=== PATIENT | male | born 1960 | race Caucasian/White ===

== ENCOUNTER 2024-04-20 10:21 | Emergency (ER) | payer BC, MEDICARE ==
[2024-04-20 11:29] LABS: CORONAVIRUS COVID-19 NAA POSITIVE (NEGATIVE); INFLUENZA A NAA NEGATIVE (NEGATIVE); RESPIRATORY SYNCYTIAL VIR NAA NEGATIVE (NEGATIVE)
[2024-04-20 11:36] LABS: BASOPHILS PERCENT AUTO 0.6 % (0.0-1.0); EOSINOPHILS ABSOLUTE AUTO 0.1 K/mm3 (0.0-0.4); EOSINOPHILS PERCENT AUTO 1.4 % (0.0-6.0); HEMATOCRIT 50.3 % (42.0-52.0); HEMOGLOBIN 16.5 gm/dl (14.0-18.0); IMMATURE GRAN ABSOLUTE AUTO 0.04 K/mm3 (0.00-0.05); IMMATURE GRAN PERCENT AUTO 0.6 % (0.0-0.4); LYMPHOCYTES ABSOLUTE AUTO 1.1 K/mm3 (1.0-4.8); LYMPHOCYTES PERCENT AUTO 16.7 % (24.0-44.0); MEAN CORPUSCULAR HEMOGLOBIN 28.4 pg (28.0-32.0); MEAN CORPUSCULAR HGB CONC 32.8 g/dl (32.0-36.0); MEAN CORPUSCULAR VOLUME 86.4 fl (83.0-99.0); MEAN PLATELET VOLUME 9.2 fl (9.4-12.4); MONOCYTES ABSOLUTE AUTO 0.9 K/mm3 (0.0-0.8); NEUTROPHILS ABSOLUTE AUTO 4.5 K/mm3 (1.8-7.7); NEUTROPHILS PERCENT AUTO 67.7 % (41.0-71.0); PLATELET COUNT,PLT 187 K/mm3 (150-400); RED BLOOD CELL COUNT 5.82 M/mm3 (4.52-5.90); WHITE BLOOD CELL COUNT,WBC 6.63 K/mm3 (3.9-11.3)
[2024-04-20 11:59] LABS: INR 1.04; LACTIC ACID 1.4 mmol/L (0.4-2.0)
[2024-04-20 12:00] LABS: PTT,PARTIAL THROMBOPLSTIN TIME 38.8 SECONDS (21.7-31.4)
[2024-04-20] MEDS: methylPREDNISolone Sodium Succinate 125 MG/2 ML SDV IVPUSH ONE (12:00)
[2024-04-20 12:05] LABS: A/G RATIO 0.8 (1-2); ALBUMIN 3.4 g/dl (3.4-5.0); ANION GAP 13.8 (5-15); BILIRUBIN TOTAL 0.6 mg/dL (0.2-1.0); CALCIUM 9.1 mg/dL (8.5-10.1); CREATININE 1.1 mg/dL (0.7-1.3); EST CRCL DRUG DOSING (CG) 73.48 mL/min; MAGNESIUM 2.1 mg/dL (1.8-2.4); POTASSIUM,K 3.8 mEq/L (3.5-5.1); PROTEIN TOTAL,TP 7.6 g/dl (6.4-8.2)
[2024-04-20] MEDS: Albuterol/Ipratropium 3.0-0.5 MG/3 ML Neb Soln NEB ONE (12:05)
[2024-04-20 12:18] LABS: D-DIMER QUANTITATIVE 0.67 mg/L (0.19-0.50)
[2024-04-20] MEDS: Sodium Chloride 0.9% 100 ML IV SCH (12:53)
[2024-04-20] MEDS: Iopamidol 755 Mg/ML 100 ML Bottle IVPUSH ONE (12:53)
[2024-04-20] MEDS: Sodium Chloride 0.9% 10 ML Syringe FLUSH PRN (12:59)
[2024-04-20] MEDS: cefTRIAXone 1 GM in Sodium Chloride 0.9% 100 ML IV ONE (13:15)
== END 2024-04-20 16:20 | disposition home or self-care (01) ==
LOC: JD.ED 10:21
DX: U07.1 COVID-19 (principal); J12.82 Pneumonia due to coronavirus disease 2019; J44.1 Chronic obstructive pulmonary disease with (acute) exacerbation; I10 Essential (primary) hypertension; I25.10 Atherosclerotic heart disease of native coronary artery without angina pectoris; E78.00 Pure hypercholesterolemia, unspecified; Z95.0 Presence of cardiac pacemaker; Z95.5 Presence of coronary angioplasty implant and graft; Z79.82 Long term (current) use of aspirin; Z79.899 Other long term (current) drug therapy; Z88.0 Allergy status to penicillin; Z88.1 Allergy status to other antibiotic agents; Z88.8 Allergy status to other drugs, medicaments and biological substances
CPT/HCPCS: 0241U; 36415; 71045; 71045-26; 71275; 71275-26; 80053; 83605; 83735; 84484; 85025; 85379; 85610; 85730; 87040; 94640; 96365; 96375; 99284; 99285-25; J0696; J2919; J3490; J7620-GY; Q9967

== ENCOUNTER 2024-04-25 06:11 | Emergency (ER) | payer BC, MEDICARE ==
[2024-04-25] MEDS: Azithromycin 250 MG Tab PO ONE (07:45)
== END 2024-04-25 07:45 | disposition home or self-care (01) ==
LOC: JD.ED 06:11
DX: J44.9 Chronic obstructive pulmonary disease, unspecified (principal); J43.9 Emphysema, unspecified; U07.1 COVID-19; I10 Essential (primary) hypertension; E78.00 Pure hypercholesterolemia, unspecified; Z95.0 Presence of cardiac pacemaker; Z95.5 Presence of coronary angioplasty implant and graft; Z79.82 Long term (current) use of aspirin; Z79.899 Other long term (current) drug therapy; Z88.8 Allergy status to other drugs, medicaments and biological substances; Z88.1 Allergy status to other antibiotic agents; Z88.0 Allergy status to penicillin
CPT/HCPCS: 71046; 99284; A9270

== ENCOUNTER 2024-04-30 09:15 | Inpatient (IN) | payer BC, MEDICARE ==
[2024-04-30] MEDS ORDERED: Sodium Chloride 0.9% 10 ML Syringe FLUSH PRN (10:20)
[2024-04-30 10:42] LABS: BASOPHILS PERCENT AUTO 0.1 % (0.0-1.0); EOSINOPHILS ABSOLUTE AUTO 0.1 K/mm3 (0.0-0.4); EOSINOPHILS PERCENT AUTO 0.6 % (0.0-6.0); HEMATOCRIT 44.8 % (42.0-52.0); IMMATURE GRAN ABSOLUTE AUTO 0.06 K/mm3 (0.00-0.05); IMMATURE GRAN PERCENT AUTO 0.6 % (0.0-0.4); LYMPHOCYTES ABSOLUTE AUTO 1.1 K/mm3 (1.0-4.8); LYMPHOCYTES PERCENT AUTO 11.4 % (24.0-44.0); MEAN CORPUSCULAR VOLUME 84.8 fl (83.0-99.0); MEAN PLATELET VOLUME 8.8 fl (9.4-12.4); MONOCYTES ABSOLUTE AUTO 0.8 K/mm3 (0.0-0.8); MONOCYTES PERCENT AUTO 8.1 % (0.0-8.0); NEUTROPHILS ABSOLUTE AUTO 7.9 K/mm3 (1.8-7.7); NEUTROPHILS PERCENT AUTO 79.2 % (41.0-71.0); PLATELET COUNT,PLT 224 K/mm3 (150-400); RED BLOOD CELL COUNT 5.28 M/mm3 (4.52-5.90); WHITE BLOOD CELL COUNT,WBC 9.94 K/mm3 (3.9-11.3)
[2024-04-30 10:44] LABS: HEMOGLOBIN 14.8 gm/dl (14.0-18.0)
[2024-04-30 11:06] LABS: A/G RATIO 0.5 (1-2); ALBUMIN 2.5 g/dl (3.4-5.0); BILIRUBIN TOTAL 0.9 mg/dL (0.2-1.0); C-REACTIVE PROTEIN 16.3 mg/dL (<0.30); CALCIUM 8.6 mg/dL (8.5-10.1); CREATININE 0.8 mg/dL (0.7-1.3); EST CRCL DRUG DOSING (CG) 101.04 mL/min; MAGNESIUM 1.9 mg/dL (1.8-2.4); PROTEIN TOTAL,TP 7.2 g/dl (6.4-8.2)
[2024-04-30 11:25] LABS: APPEARANCE,URINE CLEAR (Clear); BILIRUBIN,URINE 1+ (Negative); COLOR,URINE AMBER (Yellow); GLUCOSE,URINE NEGATIVE (Negative); KETONES,URINE TRACE (Negative); LEUKOCYTE ESTERASE,URINE NEGATIVE (Negative); NITRITE,URINE NEGATIVE (Negative); OCCULT BLOOD,URINE NEGATIVE (Negative); PH,URINE 6.5 (5.0-8.0); PROTEIN,URINE 2+ (Negative)
[2024-04-30] MEDS: methylPREDNISolone Sodium Succinate 125 MG/2 ML SDV IVPUSH ONE (11:50)
[2024-04-30] MEDS: Sodium Chloride 0.9% 1,000 ML IV ONE (11:50)
[2024-04-30] MEDS: Levofloxacin/Dextrose 5%-Water 500 MG in Premix Bag 1 BAG IV ONE (11:50)
[2024-04-30 11:52] LABS: BACTERIA,URINE FEW /hpf (FEW); EPITHELIAL CELLS,URINE 0-5 /hpf (0-5); MUCUS,URINE MANY /hpf (FEW); RBC,URINE 0-5 /hpf (0-5); WBC,URINE 0-5 /hpf (0-5)
[2024-04-30] MEDS ORDERED: Ondansetron 4 MG/2 ML SDV IV PRN (13:44)
[2024-04-30] MEDS ORDERED: Acetaminophen 325 MG Tab PO PRN (13:44)
[2024-04-30] MEDS ORDERED: Cyclobenzaprine 10 MG Tab PO PRN (13:45)
[2024-04-30] MEDS ORDERED: Lactulose Soln 10 GM/15 ML 30 ML UD Cup PO PRN (14:00)
[2024-04-30] MEDS: Metoprolol Succinate 25 MG Tab.ER PO SCH (15:46)
[2024-04-30] MEDS: Aspirin 81 MG Tab.EC PO SCH (15:48)
[2024-04-30] MEDS: atorvaSTATin 40 MG Tab PO SCH (15:48)
[2024-04-30] MEDS: Acetaminophen/HYDROcodone 325-5 MG Tab PO PRN (15:52)
[2024-04-30] MEDS: Albuterol/Ipratropium 3.0-0.5 MG/3 ML Neb Soln NEB SCH ×2 (19:25→20:46)
[2024-04-30] MEDS: Pantoprazole 40 MG Tab.CR PO SCH (21:23)
[2024-05-01] MEDS: predniSONE 20 MG Tab PO SCH (07:57)
[2024-05-01] MEDS ORDERED: Metoprolol Succinate 25 MG Tab.ER PO SCH (08:00)
[2024-05-01] MEDS ORDERED: Aspirin 81 MG Tab.EC PO SCH (08:00)
[2024-05-01] MEDS ORDERED: atorvaSTATin 40 MG Tab PO SCH (08:00)
[2024-05-01 10:24] LABS: HEMATOCRIT 42.1 % (42.0-52.0); HEMOGLOBIN 13.7 gm/dl (14.0-18.0); MEAN CORPUSCULAR HEMOGLOBIN 28.1 pg (28.0-32.0); MEAN CORPUSCULAR HGB CONC 32.5 g/dl (32.0-36.0); MEAN CORPUSCULAR VOLUME 86.3 fl (83.0-99.0); MEAN PLATELET VOLUME 9.5 fl (9.4-12.4); PLATELET COUNT,PLT 258 K/mm3 (150-400); RED BLOOD CELL COUNT 4.88 M/mm3 (4.52-5.90); WHITE BLOOD CELL COUNT,WBC 9.05 K/mm3 (3.9-11.3)
[2024-05-01 10:57] LABS: POTASSIUM,K 4.4 mEq/L (3.5-5.1)
[2024-05-01 10:58] LABS: A/G RATIO 0.5 (1-2); ALBUMIN 2.3 g/dl (3.4-5.0); ANION GAP 14.4 (5-15); BILIRUBIN TOTAL 0.4 mg/dL (0.2-1.0); BUN/CREATININE RATIO 18.8 (14-18); CREATININE 0.8 mg/dL (0.7-1.3); EST CRCL DRUG DOSING (CG) 101.04 mL/min; PROTEIN TOTAL,TP 6.7 g/dl (6.4-8.2)
[2024-05-01] MEDS: Levofloxacin/Dextrose 5%-Water 750 MG in Premix Bag 1 BAG IV SCH (11:38)
[2024-05-01] MEDS: PRASUGREL 10 MG PO SCH (12:17)
[2024-05-01] MEDS: Enoxaparin 40 MG/0.4 ML Syringe SUBCUT SCH (12:17)
[2024-05-02 05:59] LABS: HEMATOCRIT 38.1 % (42.0-52.0); HEMOGLOBIN 12.6 gm/dl (14.0-18.0); MEAN CORPUSCULAR HEMOGLOBIN 27.9 pg (28.0-32.0); MEAN CORPUSCULAR HGB CONC 33.1 g/dl (32.0-36.0); MEAN CORPUSCULAR VOLUME 84.3 fl (83.0-99.0); MEAN PLATELET VOLUME 9.3 fl (9.4-12.4); PLATELET COUNT,PLT 317 K/mm3 (150-400); RED BLOOD CELL COUNT 4.52 M/mm3 (4.52-5.90); WHITE BLOOD CELL COUNT,WBC 19.76 K/mm3 (3.9-11.3)
[2024-05-02 06:29] LABS: A/G RATIO 0.6 (1-2); ALBUMIN 2.2 g/dl (3.4-5.0); BILIRUBIN TOTAL 0.3 mg/dL (0.2-1.0); BUN/CREATININE RATIO 17.8 (14-18); CALCIUM 8.6 mg/dL (8.5-10.1); CREATININE 0.9 mg/dL (0.7-1.3); EST CRCL DRUG DOSING (CG) 89.81 mL/min; PROTEIN TOTAL,TP 6.1 g/dl (6.4-8.2)
[2024-05-02] MEDS ORDERED: 50% Dextrose in Water 50 ML Syringe IVPUSH PRN (10:20)
[2024-05-02] MEDS: Sodium Chloride 0.9% 1,000 ML IV ONE (10:22)
[2024-05-02 10:25] LABS: HEMOGLOBIN A1C 6.7 %
[2024-05-02] MEDS: Sodium Chloride 3% Inhalation Soln 4 ML Neb NEB SCH (10:51)
[2024-05-02] MEDS: Tiotropium Bromide 4 GM Inhalation Spray (2.5mcg/1 dose; 10 doses) INH SCH (10:51)
[2024-05-02] MEDS ORDERED: Azithromycin 500 MG in Sodium Chloride 0.9% 250 ML IV SCH (11:00)
[2024-05-02] MEDS: VANCOmycin 2 GM/400 ML 2 GM in Premix Bag 1 BAG IV ONE (12:32)
[2024-05-02] MEDS: Insulin Lispro 100 Unit/ML 3 ML KwikPen SUBCUT SCH (12:39)
[2024-05-02 14:17] LABS: LACTIC ACID 1.7 mmol/L (0.4-2.0)
[2024-05-02 19:42] LABS: RESP SYNCYTIAL VIRUS,RSV NEGATIVE (NEGATIVE)
[2024-05-02] MEDS: Formoterol/Mometasone 100-5 MCG 8.8 GM Inhaler INH SCH (20:01)
[2024-05-02] MEDS: VANCOmycin 1.5 GM/300 ML 1.5 GM in Premix Bag 1 BAG IV SCH (23:51)
[2024-05-03 06:01] LABS: HEMOGLOBIN 12.6 gm/dl (14.0-18.0); MEAN CORPUSCULAR HEMOGLOBIN 28.3 pg (28.0-32.0); MEAN CORPUSCULAR HGB CONC 34.1 g/dl (32.0-36.0); MEAN CORPUSCULAR VOLUME 83.1 fl (83.0-99.0); MEAN PLATELET VOLUME 8.9 fl (9.4-12.4); PLATELET COUNT,PLT 344 K/mm3 (150-400); RED BLOOD CELL COUNT 4.45 M/mm3 (4.52-5.90); WHITE BLOOD CELL COUNT,WBC 15.81 K/mm3 (3.9-11.3)
[2024-05-03 06:25] LABS: A/G RATIO 0.6 (1-2); ALBUMIN 2.3 g/dl (3.4-5.0); ANION GAP 14.8 (5-15); BILIRUBIN TOTAL 0.5 mg/dL (0.2-1.0); BUN/CREATININE RATIO 12.5 (14-18); C-REACTIVE PROTEIN 5.55 mg/dL (<0.30); CALCIUM 8.6 mg/dL (8.5-10.1); CREATININE 0.8 mg/dL (0.7-1.3); EST CRCL DRUG DOSING (CG) 101.04 mL/min; MAGNESIUM 1.5 mg/dL (1.8-2.4); PHOSPHORUS 2.5 mg/dL (2.6-4.7); POTASSIUM,K 3.8 mEq/L (3.5-5.1); PROTEIN TOTAL,TP 6.2 g/dl (6.4-8.2); VANCOMYCIN RANDOM 14.9 ug/mL
[2024-05-03] MEDS: VANCOmycin 1.75 GM/350 ML 1.75 GM in Premix Bag 1 BAG IV SCH (13:05)
[2024-05-03] MEDS: Potassium Chloride 20 MEQ Tab.ER PO ONE (13:49)
[2024-05-03] MEDS: Magnesium Sulfate/Water 4 GM in Premix Bag 1 BAG IV ONE (13:50)
[2024-05-03] MEDS: Sodium Phosphate 30 MMOLE in Sodium Chloride 0.9% 250 ML IV ONE (17:50)
[2024-05-03] MEDS: ALPRAZolam 0.5 MG Tab PO PRN (21:24)
[2024-05-04 05:33] LABS: HEMATOCRIT 37.8 % (42.0-52.0); HEMOGLOBIN 12.5 gm/dl (14.0-18.0); MEAN CORPUSCULAR HEMOGLOBIN 28.1 pg (28.0-32.0); MEAN CORPUSCULAR HGB CONC 33.1 g/dl (32.0-36.0); MEAN CORPUSCULAR VOLUME 84.9 fl (83.0-99.0); MEAN PLATELET VOLUME 9.2 fl (9.4-12.4); NRBC ABSOLUTE 0.03 (0.00-0.02); NRBC PERCENT 0.2 % (0.0-0.2); PLATELET COUNT,PLT 347 K/mm3 (150-400); RED BLOOD CELL COUNT 4.45 M/mm3 (4.52-5.90); WHITE BLOOD CELL COUNT,WBC 12.22 K/mm3 (3.9-11.3)
[2024-05-04 06:13] LABS: A/G RATIO 0.6 (1-2); ALBUMIN 2.2 g/dl (3.4-5.0); ANION GAP 12.2 (5-15); BILIRUBIN TOTAL 0.6 mg/dL (0.2-1.0); BUN/CREATININE RATIO 11.3 (14-18); C-REACTIVE PROTEIN 14.44 mg/dL (<0.30); CALCIUM 8.5 mg/dL (8.5-10.1); CREATININE 0.8 mg/dL (0.7-1.3); EST CRCL DRUG DOSING (CG) 101.04 mL/min; MAGNESIUM 2.1 mg/dL (1.8-2.4); PHOSPHORUS 3.2 mg/dL (2.6-4.7); POTASSIUM,K 4.2 mEq/L (3.5-5.1); PROTEIN TOTAL,TP 6.2 g/dl (6.4-8.2)
[2024-05-04] MEDS: Levofloxacin/Dextrose 5%-Water 750 MG in Premix Bag 1 BAG IV SCH (14:31)
[2024-05-04] MEDS: predniSONE 20 MG Tab PO SCH (16:07)
[2024-05-05 05:10] LABS: HEMATOCRIT 41.9 % (42.0-52.0); HEMOGLOBIN 13.9 gm/dl (14.0-18.0); MEAN CORPUSCULAR HEMOGLOBIN 28.1 pg (28.0-32.0); MEAN CORPUSCULAR HGB CONC 33.2 g/dl (32.0-36.0); MEAN CORPUSCULAR VOLUME 84.6 fl (83.0-99.0); PLATELET COUNT,PLT 380 K/mm3 (150-400); RED BLOOD CELL COUNT 4.95 M/mm3 (4.52-5.90); WHITE BLOOD CELL COUNT,WBC 11.96 K/mm3 (3.9-11.3)
[2024-05-05 06:03] LABS: BUN/CREATININE RATIO 13.3 (14-18); C-REACTIVE PROTEIN 14.5 mg/dL (<0.30); CALCIUM 9.1 mg/dL (8.5-10.1); CREATININE 0.9 mg/dL (0.7-1.3); EST CRCL DRUG DOSING (CG) 89.81 mL/min
[2024-05-05] MEDS ORDERED: PRASUGREL HCL 10 MG PO SCH (09:00)
== END 2024-05-05 15:13 | disposition home or self-care (01) | DRG 720 ==
LOC: JD.ED 09:15 → JD.MS 13:11
PROVIDERS: ADMIT Internal Medicine; ATTEND Family Medicine
DX: A41.9 Sepsis, unspecified organism (principal); J12.82 Pneumonia due to coronavirus disease 2019; J96.01 Acute respiratory failure with hypoxia; J15.9 Unspecified bacterial pneumonia; J44.0 Chronic obstructive pulmonary disease with (acute) lower respiratory infection; J43.1 Panlobular emphysema; J44.1 Chronic obstructive pulmonary disease with (acute) exacerbation; E87.20 Acidosis, unspecified; E11.51 Type 2 diabetes mellitus with diabetic peripheral angiopathy without gangrene; U09.9 Post COVID-19 condition, unspecified; I10 Essential (primary) hypertension; K21.9 Gastro-esophageal reflux disease without esophagitis; I25.10 Atherosclerotic heart disease of native coronary artery without angina pectoris; E78.2 Mixed hyperlipidemia; M54.50 Low back pain, unspecified; G89.29 Other chronic pain; R74.01 Elevation of levels of liver transaminase levels; I45.9 Conduction disorder, unspecified; Z95.0 Presence of cardiac pacemaker; Z95.5 Presence of coronary angioplasty implant and graft; Z87.891 Personal history of nicotine dependence; Z79.899 Other long term (current) drug therapy; Z79.82 Long term (current) use of aspirin; Z88.8 Allergy status to other drugs, medicaments and biological substances; Z88.5 Allergy status to narcotic agent; Z88.1 Allergy status to other antibiotic agents; Z88.0 Allergy status to penicillin; Z79.51 Long term (current) use of inhaled steroids; Z79.2 Long term (current) use of antibiotics; Z87.19 Personal history of other diseases of the digestive system; Z96.649 Presence of unspecified artificial hip joint; Z90.49 Acquired absence of other specified parts of digestive tract; Z95.820 Peripheral vascular angioplasty status with implants and grafts
CPT/HCPCS: 36415; 71045; 71045-26; 71046; 71046-26; 80048; 80053; 80202; 81001; 82947; 83036; 83605; 83735; 83880; 84100; 84145; 84484; 85025; 85027; 85379; 86140; 87040; 87641; 87807; 93005; 93010; 93306; 94640; 94760; 94761; 94762; 96365; 96375; 99232; 99233; 99238; 99284; 99285-25; A9270-GY; J1650; J1815; J1956; J2919; J3372; J3475; J3490; J7030; J7050; J7512; J7620-GY